=== PATIENT | male | born 1980 | race Caucasian/White ===

== ENCOUNTER 2018-04-19 21:10 | Emergency (ER) | payer OTHER ==
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
== END 2018-04-19 21:46 | disposition home or self-care (01) ==
LOC: CC.ED 21:10 → EDBD 21:10 → CC.ED 21:46
DX: S82.65XA Nondisplaced fracture of lateral malleolus of left fibula, initial encounter for closed fracture (principal); W00.0XXA Fall on same level due to ice and snow, initial encounter; X50.1XXA Overexertion from prolonged static or awkward postures, initial encounter
CPT/HCPCS: 73610-LT; 99283